=== PATIENT | female | born 1945 | race Caucasian/White ===

== ENCOUNTER → 2017-08-11 | Day surgery (SDC) | payer MEDICARE ==
[~2017-08-11] VITALS: Ht 154.9 cm; Wt 62.0 kg
[2017-08-11] VITALS (7 sets, daily range): BP systolic 136–183; BP diastolic 58–92; PULSE 50–84; TEMP 36–36.9; O2SAT 96–99; Ht 154.9 cm; Wt 62.0 kg
[~2017-08-11] MED LIST: AMLO10TA2 PO; CELE100C PO; CHOL1000 PO; CHOLCAP5 PO; CYAN10002 IM; CYCL10TA6 PO; ERGO1CAP35 PO; ERGO500037 PO; FENTANYL CITRATE INJ 50 MCG/1 ML 2 ML VIAL IV ONE; FERR325T5 PO; IBUP-1050 PO; LACT10CA3 PO; LEVALBUTEROL 1.25MG/3ML NEB INH ONE; LEVO100T PO; LIDOCAINE 4% INH SOLN 4 ML BTL TOP ONE; LIDOCAINE HCL 2% LOCAL 50ML VIAL INSTIL ONE; LIDOCAINE VISCOUS 2% 100ML TOP ONE; LOSA100T2 PO; MIDAZOLAM HCL 5 MG/ML 1 ML VIAL IV ONE; MULT-190 PO; OXYMETAZOLINE HCL 0.05% NA SPR 15 ML BTL ONE; SERT50TA PO; ZOLP10TA PO
--- NOTE | 2017-08-11 10:01 | History & Physical Bridge Note ---
H&P Re-Evaluation Bridge Note: I have examined the patient, reviewed the History & Physical and in the interval since the performance of the History & Physical I have noted the following changes of clinical significance: No changes noted
--- NOTE | 2017-08-11 10:02 | Pre Sedation Assessment ---
Pre Sedation Assessment General Date of Sedation: Aug 11, 2017. Vital Signs Past 12 Hours Date Time Temp Pulse Resp B/P (MAP) Pulse Ox O2 Delivery O2 Flow Rate FiO2 08/11/17 09:30 36.5 55 20 183/86 (118) 98 Room Air Pre-Sedation Airway Assessment Smoking Status: Never Smoker Hx of Sleep Apnea: No Short Thick Neck: No Thyro-mental Distance: > 3 Finger Breadths Oral Cavity: WNL Mallampati Classification: Class I ASA Classification: Class II NPO Status Date of Last Intake of Fluids: Aug 10, 2017 Time of Last Intake of Fluids: 1900 Date of Last Intake of Solids: Aug 10, 2017 Time of Last Intake of Solids: 1730 Procedure Planning Contraindications for Sedation: None Current Medications Reviewed: Yes Notes The planned sedation has been discussed with the patient. Informed Consent was obtained. I have identified the patient, determined the appropriateness of sedation and have assessed the patient immediately prior to the procedure. All medicine(s) and interventions are by my order.
--- NOTE | 2017-08-11 11:48 | [facility] Operative Report ---
Operative Report Operative Date Aug 11, 2017. Pre-Operative Diagnosis SHORTNESS OF BREATH Post-Operative Diagnosis SHORTNESS OF BREATH Chronic Mucopurulent Bronchitis w mucoid impaction Procedure(s) Performed BRONCHOSCOPY Surgeon DR DESHPANDE Estimated Blood Loss 0 Findings Chronic Mucopurulent Bronchitis w mucoid impaction Specimens RIGHT LUNG AND LEFT LUNG WASHING Complication(s) None Disposition I attest to the content of the Intraoperative Record and any orders documented therein. Any exceptions are noted below.
--- NOTE | 2017-08-11 11:49 | Post Sedation Assessment ---
Post Sedation Assessment General Date of Sedation Aug 11, 2017. Vital Signs: Vital Signs Past 12 Hours Date Time Temp Pulse Resp B/P (MAP) Pulse Ox O2 Delivery O2 Flow Rate FiO2 08/11/17 11:35 58 18 128/78 98 Nasal Cannula 4 08/11/17 11:30 58 18 132/80 99 Oxymask 6 08/11/17 11:25 56 18 156/89 100 Oxymask 6 08/11/17 11:20 74 21 135/73 100 Oxymask 6 08/11/17 11:15 53 16 124/77 99 Oxymask 6 08/11/17 11:10 54 16 158/82 100 Oxymask 6 08/11/17 11:00 53 16 188/104 100 Oxymask 6 08/11/17 09:30 36.5 55 20 183/86 (118) 98 Room Air Post Procedure Recovery Score Activity: (2) Moves 4 extremities * Respiration: (2) Deep breath/cough Circulation: (2) +/-20% PreAnes Value Consciousness: (2) Fully Awake Oxygen Saturation: (1) O2 needed for >90% Post Anesthesia Score: 9 Discharge Sedation Level of Care: Fast Track Phase II Post Sedation Plan On clinical assessment, the patient appears to have tolerated the sedation without complications. Patient is recovering as anticipated. Patient will continue to be monitored by nursing and may be discharged when sedation discharge criteria are met per below protocol. Upon Completions of procedure and additional 15 minutes continue every 5 minute vital signs and the P.A.R. score; then discharge to a Phase I or Fast Track to Phase II per the following guidelines: * Discharge Patient to appropriate Phase II area if PAR is 8 or greater or return to pre- procedure baseline. The post - procedure orders will be as directed. * If PAR score is less than 8 or not return to pre-procedure baseline then patient will follow Phase I monitoring till PAR is reached for Phase II. The Phase I may be done in procedure room or may call to secure a Phase I area. * If naloxone or flumazenil are used for reversal, hold in Phase I for an additional 60 -120 minutes before discharge to Phase II. Please call the Sedation Physician to re-evaluate and complete post-note for discharge to Phase II area. Do NOT discharge from procedure sedation or Phase 1 until post- sedation evaluation note is complete by procedure /sedation MD Sedation Discharge Instructions to be given to the patient at discharge to home.
--- NOTE | 2017-08-11 11:51 | Discharge Instructions ---
Discharge Instructions Date of Service Aug 11, 2017. Admission Reason for Admission: Pulm Hypertention, Sob Discharge Discharge Diagnosis / Problem: Chronic Mucopurulent Bronchitis w mucoid impaction Discharge Goals Goal(s): Diagnostic testing Activity Recommendations Activity Limitations: resume your previous activity Lifting Limitations: none Exercise/Sports Limitations: none May Resume Sexual Activity: when tolerated Shower/Bathe: no limitations Driving or Machine Use: no limitations None . Current Hospital Diet Patient's current hospital diet: Discharge Diet Recommended Diet: Regular Diet Fluid Restriction: None Procedures Procedures Performed: BRONCHOSCOPY Pending Studies Studies pending at discharge: no Medical Emergencies . Who to Call and When: Medical Emergencies: If at any time you feel your situation is an emergency, please call 911 immediately. . Non-Emergent Contact Non-Emergency issues call your: [employer] Drawer Call Non-Emergent contact if: temperature is above 101 . . "Provider Documentation" section prepared by Mann Omalley. .
--- NOTE | 2017-08-11 12:13 | OPERATIVE REPORT ---
DATE OF OPERATION: 08/11/2017 TIME: 11:00. PROCEDURE: Fiberoptic bronchoscopy with BAL. INDICATIONS: Unexplained dyspnea. ANESTHESIA PREOPERATIVELY: None. ANESTHESIA DURING PROCEDURE: IV Versed 5 mg, IV fentanyl 50 mcg, 20 mL 2% Xylocaine spray above and below the cords, 4% viscous Xylocaine intranasally. PROCEDURE NOTE: The fiberoptic bronchoscope was inserted into the right naris at 11:10 without difficulty and passed to the level of the true vocal cords. The cords appeared to approximate normally with phonation without evidence of lesions or paralysis. The area was anesthetized with 2% Xylocaine spray and the scope was then introduced in the trachea and right and left tracheobronchial tree. Trachea was within normal limits as was the subglottic region. The sylwia was sharp. The right main stem bronchus was then explored and no obvious endobronchial lesions were seen. The right upper lobe, the apical -- posterior and anterior segments, bronchus intermedius, right middle lobe, the medial lateral segments and all basilar segments of right lower lobe were found to be free of endobronchial lesions with mild chronic inflammatory mucosal change seen and mucous pitting seen throughout the right tracheobronchial tree. Numerous segmental and subsegmental bronchi appeared to be involved with mucoid impaction and these areas were copiously lavaged with normosol and the aspirate sent for appropriate studies. The basilar segments of right lower lobe were chiefly involved as were the subsegmental bronchi. The left tracheobronchial tree was explored and similar findings were noted with no obvious endobronchial lesions but numerous segmental and subsegmental bronchi of the respective lobar segments were involved with mucoid impaction that appeared purulent. Left upper lobe, the apical - posterior and anterior segments, lingular subdivision with the superior and inferior segments, and all basilar segments of left lower lobe were free of endobronchial lesions. Left lower lobe appeared to be most involved with mucoid impaction involving the segmental and subsegmental bronchi. This region was copiously lavaged with normosol and the aspirate also sent for appropriate studies. No brushings or biopsies were deemed necessary. Fluoroscopy was not utilized. The procedure was terminated. The patient was given a nebulizer treatment with Xopenex 1.25 mg, then transferred to the medical treatment unit, no signs of respiratory compromise and hemodynamically stable. We will await microbiological and cytologic examination of the bronchial washings. IV conscious sedation was carried out from 11:10 to 11:20. I attest to the content of the Intraoperative Record and any orders documented therein. Any exception s are noted below.
[2017-08-15 12:36] LABS: HERPES SIMPLEX VIRUS CULT NOT ISOLATED (NOT ISOLATED)
== END | disposition home or self-care (01) ==
LOC: C.ACU 08:13
PROVIDERS: ATTEND Internal Medicine Pulmonary Disease
DX: R06.00 Dyspnea, unspecified (principal); I27.20 Pulmonary hypertension, unspecified; I10 Essential (primary) hypertension; F32.9 Major depressive disorder, single episode, unspecified; M19.90 Unspecified osteoarthritis, unspecified site; R13.10 Dysphagia, unspecified; K21.9 Gastro-esophageal reflux disease without esophagitis; E78.5 Hyperlipidemia, unspecified; E03.9 Hypothyroidism, unspecified; E66.01 Morbid (severe) obesity due to excess calories; M81.0 Age-related osteoporosis without current pathological fracture; E55.9 Vitamin D deficiency, unspecified; E53.8 Deficiency of other specified B group vitamins; Z98.84 Bariatric surgery status; Z82.5 Family history of asthma and other chronic lower respiratory diseases; Z80.8 Family history of malignant neoplasm of other organs or systems